=== PATIENT | male | born 1955 | race Caucasian/White ===

== ENCOUNTER 2024-04-04 14:46 | Inpatient (IN) | payer OTHER ==
[~2024-04-04] VITALS: Ht 167.6 cm; Wt 61.2 kg
[~2024-04-04 14:46] MED LIST: ALGINATE DRESSING/CME-CELL 1 EACH BANDAGE T ONE
[2024-04-04 14:58] VITALS: BP 106/60
[2024-04-04] MEDS ORDERED: MIRTAZAPINE15 M2 PO (16:18)
[2024-04-04] MEDS ORDERED: QUETIAPINE FUMA50 M1 PO (16:19)
[2024-04-04] MEDS ORDERED: PROCHLORPERAZIN10 MG PO (16:20)
[2024-04-04] MEDS ORDERED: 'KLONOPIN0.5 MG PO (16:21)
[2024-04-04 16:48] LABS: BASO % 0.2 % (0.0-1.0); EOS # 0.2 10*3/uL (0.0-0.4); EOS % 2.6 % (1.0-4.0); HEMATOCRIT 43.7 % (42.0-52.0); LYMPH # 2.2 10*3/uL (1.3-4.4); LYMPH % 33.5 % (27.0-41.0); MEAN CELL VOLUME 98.4 fl (80.0-94.0); MEAN CORPUSCULAR HGB CONC 32.5 g/dl (33.0-37.0); MEAN PLATELET VOLUME 9.6 fl (9.6-12.3); MONO # 0.5 10*3/uL (0.1-1.0); MONO % 6.8 % (3.0-9.0); NEUT # 3.8 10*3/uL (2.3-7.9); NEUT % 56.7 % (47.0-73.0); PLATELET COUNT AUTOMATED 233 10*3/uL (130-400); RED BLOOD COUNT 4.44 10*6/uL (4.50-5.90); RED CELL DISTRI WIDTH 12.7 % (0-14.5); WHITE BLOOD COUNT 6.7 10*3/uL (4.8-10.8)
[2024-04-04] MEDS ORDERED: MEMANTINE HCL10 MG PO (17:01)
[2024-04-04] MEDS ORDERED: OMEPRAZOLE MAGN20 MG PO (17:02)
[2024-04-04 17:06] LABS: ALKALINE PHOSPHATASE 54 U/L (46-116); BUN 11 mg/dl (9-23); CHLORIDE 104 mmol/L (98-107); POTASSIUM 3.6 mmol/L (3.4-5.1); TOTAL PROTEIN 6.5 gm/dL (6.0-8.0)
[2024-04-04 17:07] LABS: ETHYL ALCOHOL < 3.0 mg/dl (<3); SGPT/ALT < 7 U/L (5-49)
[2024-04-04 17:45] LABS: BILIRUBIN Negative (Negative); BLOOD Negative (Negative); CLARITY Clear (Clear); COLOR Yellow (Yellow); GLUCOSE Negative (Negative); KETONE Negative (Negative); LEUKO ESTERASE 1+ (Negative); NITRITE Positive (Negative); PH 6.5 (4.5-8.0); UROBILINOGEN 0.2 E.U./dl (0.0-1.0)
[2024-04-04 17:52] LABS: URINE AMPHETAMINES Negative (1000ng/ml); URINE BARBITURATES Negative (200ng/ml); URINE BENZODIAZEPINES Negative (200ng/ml); URINE CANNABINOIDS (THC) Negative (50ng/ml); URINE COCAINE Negative (300ng/ml); URINE METHADONE Negative (300ng/ml); URINE OPIATES Positive (300ng/ml); URINE PHENCYCLIDINE Negative (25ng/ml)
[2024-04-04 17:56] LABS: BACTERIA 1+; MUCOUS 1+; RBC 0-2 rbc/hpf (0-2)
[2024-04-04 21:07] VITALS: BP 100/57
[2024-04-04] MEDS ORDERED: ACETAMINOPHEN 325 MG TAB PO PRN (23:30)
[2024-04-04] MEDS ORDERED: LORazepam 1 MG TAB PO PRN (23:30)
[2024-04-04] MEDS ORDERED: MG-AL HYDROXIDE/SIMETICONE 30 ML UDC PO PRN (23:30)
[2024-04-04] MEDS ORDERED: Magnesium Hydroxide 30 ML UDC PO PRN (23:30)
[2024-04-04] MEDS ORDERED: Ziprasidone Mesylate 20 MG VIAL IM PRN (23:35)
[2024-04-04] MEDS ORDERED: Water, Sterile 10 ML VIAL IM PRN (23:35)
[2024-04-05] MEDS ORDERED: OMEPRAZOLE 20 MG CAP PO SCH (06:00)
[2024-04-05 07:08] LABS: BASO % 0.3 % (0.0-1.0); EOS # 0.2 10*3/uL (0.0-0.4); EOS % 3.9 % (1.0-4.0); HEMATOCRIT 44.4 % (42.0-52.0); LYMPH # 1.6 10*3/uL (1.3-4.4); LYMPH % 27.7 % (27.0-41.0); MEAN CORPUSCULAR HGB 32.5 pg (27.0-31.0); MEAN CORPUSCULAR HGB CONC 33.1 g/dl (33.0-37.0); MEAN PLATELET VOLUME 9.6 fl (9.6-12.3); MONO # 0.5 10*3/uL (0.1-1.0); NEUT # 3.5 10*3/uL (2.3-7.9); NEUT % 58.8 % (47.0-73.0); PLATELET COUNT AUTOMATED 225 10*3/uL (130-400); RED BLOOD COUNT 4.53 10*6/uL (4.50-5.90); RED CELL DISTRI WIDTH 12.7 % (0-14.5); WHITE BLOOD COUNT 5.9 10*3/uL (4.8-10.8)
[2024-04-05 07:29] VITALS: BP 109/64
[2024-04-05 07:35] LABS: ALKALINE PHOSPHATASE 55 U/L (46-116); BUN 11 mg/dl (9-23); CHLORIDE 107 mmol/L (98-107); CHOLESTEROL 147 mg/dL (<200); LDL CHOLESTEROL 95 mg/dL (9-159); POTASSIUM 3.9 mmol/L (3.4-5.1); TOTAL PROTEIN 6.3 gm/dL (6.0-8.0); TRIGLYCERIDES 61 mg/dl (<150)
[2024-04-05 07:39] LABS: SGPT/ALT < 7 U/L (5-49)
[2024-04-05 08:00] VITALS: BP 109/64
[2024-04-05 08:15] LABS: VITAMIN D, 25-HYDROXY 23.3 ng/mL (30-100)
[2024-04-05] MEDS ORDERED: Rivastigmine Tartrate 4.6 MG/24 HR PATCH T SCH (09:00)
[2024-04-05] MEDS ORDERED: DIVALPROEX (DR) 250 MG TAB PO SCH (09:00)
[2024-04-05] MEDS ORDERED: CEFDINIR 300 MG CAP PO SCH (09:00)
[2024-04-05 14:48] LABS: BILIRUBIN Negative (Negative); BLOOD Negative (Negative); CLARITY Clear (Clear); COLOR Yellow (Yellow); GLUCOSE Negative (Negative); KETONE Negative (Negative); LEUKO ESTERASE 2+ (Negative); NITRITE Negative (Negative); PH 6.5 (4.5-8.0)
[2024-04-05 14:59] LABS: BACTERIA 1+; RBC 0-2 rbc/hpf (0-2); WBC 31-40 wbc/hpf (0-5)
[2024-04-05 20:00] VITALS: BP 104/70
[2024-04-06 08:00] VITALS: BP 117/84
[2024-04-06] MEDS ORDERED: CYANOCOBALAMIN 500 MCG TAB PO SCH (09:00)
[2024-04-06] MEDS ORDERED: Cholecalciferol 2,000 UNIT TABLET (50 MCG) PO SCH (09:00)
[2024-04-06 20:00] VITALS: BP 123/64
[2024-04-07 07:50] VITALS: BP 113/65
[2024-04-07] MEDS ORDERED: Rivastigmine Tartrate 9.5 MG/24 HR PATCH T SCH (09:20)
[2024-04-07 20:00] VITALS: BP 113/68
[2024-04-08 07:48] VITALS: BP 125/68
[2024-04-08 19:10] VITALS: BP 103/60
[2024-04-08] MEDS ORDERED: Memantine Hydrochloride 5 MG TAB PO SCH (21:00)
[2024-04-09 07:35] VITALS: BP 129/80
[2024-04-09 19:18] VITALS: BP 111/68
[2024-04-09] MEDS ORDERED: Memantine Hydrochloride 5 MG TAB PO SCH (21:00)
[2024-04-10 07:42] VITALS: BP 114/67
[2024-04-10 07:44] LABS: ALKALINE PHOSPHATASE 57 U/L (46-116); BUN 8 mg/dl (9-23); CHLORIDE 104 mmol/L (98-107); POTASSIUM 4.1 mmol/L (3.4-5.1); TOTAL PROTEIN 6.2 gm/dL (6.0-8.0)
[2024-04-10 07:53] LABS: SGPT/ALT < 7 U/L (5-49)
[2024-04-10] MEDS ORDERED: RIVASTIGMINE 13.3 MG/24 HR TDM T SCH (09:00)
[2024-04-10 20:00] VITALS: BP 130/67
[2024-04-11 07:44] VITALS: BP 101/64
[2024-04-11] MEDS ORDERED: RIVASTIGMINE1 EAC2 T (09:41)
[2024-04-11] MEDS ORDERED: DIVALPROEX SOD250 MG PO (09:41)
[2024-04-11] MEDS ORDERED: VITAMIN D350 MCG PO (09:41)
[2024-04-11] MEDS ORDERED: PHARMASSURE V500 MCG PO (09:41)
[2024-04-11] MEDS ORDERED: NAMENDA-5 PO (09:41)
== END 2024-04-11 14:09 | disposition home or self-care (01) | DRG 883 ==
LOC: ED 14:46 → 3N 19:57
PROVIDERS: Emergency Medicine; Family Medicine; Nurse Practitioner; ADMIT Psychiatry & Neurology Psychiatry; ATTEND Psychiatry & Neurology Psychiatry
PROC: GZHZZZZ Group Psychotherapy (ICD-10-PCS; principal; 2024-04-04)
PROC: GZ51ZZZ Individual Psychotherapy, Behavioral (ICD-10-PCS; 2024-04-04)
DX: F63.81 Intermittent explosive disorder (principal); N39.0 Urinary tract infection, site not specified; F02.818 Dementia in other diseases classified elsewhere, unspecified severity, with other behavioral disturbance; E44.1 Mild protein-calorie malnutrition; E55.9 Vitamin D deficiency, unspecified; E53.8 Deficiency of other specified B group vitamins; F34.1 Dysthymic disorder; C67.9 Malignant neoplasm of bladder, unspecified; G30.9 Alzheimer's disease, unspecified; R00.1 Bradycardia, unspecified; F32.A Depression, unspecified; Z79.899 Other long term (current) drug therapy